=== PATIENT | male | born 1970 | race Caucasian/White ===

== ENCOUNTER → 2016-03-15 12:02 | Outpatient (CLI) | payer BC ==
[~2016-03-15 12:02] MED LIST: ASPIRIN EC81 M1 PO; CATAPRES0.1 MG PO; COREG12.5 MG PO; LISINOPRIL-HCTZ1 TA2 PO; NORMODYNE / TR200 MG PO; NORVASC5 MG PO; PLAVIX75 MG PO
[2016-06-08 16:15] VITALS: BMI 18.0
== END | disposition home or self-care (01) ==
LOC: D.CT 12:02
DX: I65.23 Occlusion and stenosis of bilateral carotid arteries (principal); I10 Essential (primary) hypertension

== ENCOUNTER 2016-03-23 05:40 | Inpatient (IN) | payer MEDICAID ==
[2016-03-22 12:26] LABS: HEMATOCRIT 45.4 % (42.0-54.0); HEMOGLOBIN 15.6 g/dL (13.5-17.5); MCH 29.7 pg (26.0-34.0); MCHC 34.4 g/dL (31.0-37.0); MCV 86.3 fL (80.0-100.0); MEAN PLATELET VOLUME 8.7 fL (7.4-10.4); RBC 5.26 10x6/uL (4.20-6.10); RDW 12.1 % (11.5-14.5); WBC 7.4 10x3/uL (4.8-10.8)
[2016-03-22 12:34] LABS: APTT 27.2 SECONDS (22.8-39.4); INR 0.93 (0.85-1.17); PROTIME 12.3 SECONDS (11.6-15.0)
[2016-03-22 12:39] LABS: ALBUMIN 3.8 g/dL (3.4-5.0); ALKALINE PHOSPHATASE 100 U/L (46-116); ALT (SGPT) 33 U/L (10-68); CALC OSMOLALITY 276 mosm/kg (275-300); CHLORIDE - SERUM 99 mmol/L (98-107); CREATININE - SERUM 0.9 mg/dL (0.6-1.3); GLUCOSE 95 mg/dL (74-106); POTASSIUM - SERUM 4.5 mmol/L (3.5-5.1); PROTEIN - SERUM 7.5 g/dL (6.4-8.2); SODIUM 138 mmol/L (136-145); UREA NITROGEN 15 mg/dL (7-18); eGFR NON AFRICAN AMERICAN > 90 mL/min (90-120)
[2016-03-22 13:07] LABS: APPEARANCE CLEAR (CLEAR); BACTERIA FEW /hpf (NONE SEEN); BILIRUBIN NEGATIVE (NEGATIVE); COLOR YELLOW (YELLOW); EPITHELIAL CELLS OCC /hpf (0-5); GLUCOSE NEGATIVE (NEGATIVE); KETONE NEGATIVE (NEGATIVE); LEUKOCYTE ESTERASE NEGATIVE (NEGATIVE); NITRITE NEGATIVE (NEGATIVE); PROTEIN NEGATIVE (NEGATIVE); SPECIFIC GRAVITY 1.015 (1.005-1.020); UROBILINOGEN NORMAL (NORMAL); WHITE CELLS - URINE RARE /hpf (0-5)
[~2016-03-23] VITALS: Ht 170.2 cm; Wt 52.5 kg
[2016-03-23] VITALS (53 sets, daily range): BP systolic 111–159; BP diastolic 56–99; Ht 170.2 cm; Wt 52.5 kg
[~2016-03-23 05:40] MED LIST changes: -CATAPRES0.1 MG PO; -COREG12.5 MG PO; -NORMODYNE / TR200 MG PO
--- NOTE | 2016-03-23 11:31 | NUR ---
RECIEVED TO ROOM 2303 VIA BED. PLASMALYTE AT 100 CC/HR. CLEVIPREX AT 30 MG/HR. DR. JOHNSON NOTIFIED OF BP. ORDER FOR NIPRIDE RECIEVED. MEDICATION STARTED. CALLED FOR CXR.
--- NOTE | 2016-03-23 12:05 | NUR ---
ICE PACK APPLIED TO LEFT NECK AT 1130. CLEVIPREX INFUSION RESTARTED PER ORDER VERIFIED WITH DR. JOHNSON.
--- NOTE | 2016-03-23 14:00 | NUR ---
MONTERROSOGUNNER REAGAN DC'D PER ORDER. URINAL PROVIDED.
--- NOTE | 2016-03-23 17:41 | NUR ---
PT UPSET THAT HE CAN'T GET OUT OF BED. INFORMED THAT HIS BLOOD PRESSURE IS TOO LABILE AND HE IS ON IV DRIPS TO KEEP HIS BLOOD PRESSURE DOWN. VERBALIZES UNDERSTANDING.
--- NOTE | 2016-03-23 19:11 | NUR ---
DR. JOHNSON UPDATED ON CURRENT VITAL SIGNS AND IV DRIP RATES. NEW ORDERS RECIEVED.
--- NOTE | 2016-03-23 19:30 | NUR ---
1930- REPORT RECVD. CARE ASSUMED. INITIAL ASSMNT COMPLETED. SEE FLOWSHEET FOR ALL FINDINGS. AWAKE AND ALERT. RESTLESS/AGITATED. ANXIOUS. ENCOURAGED TO REST. OVERLY CONCERNED WITH VOIDING. TEACHING R/T URINAL USE. RESP SHALLOW. LUNGS CTA. SPO2 97% ON O2 AT [address] ON THE MONITOR. AFEBRILE. PULSES PALP. RIGHT RADIAL A-LINE ZEROED AND BALANCED. GOOD WAVE FORM SEEN. CLEVIPREX AND NIPRIDE GTT TITRATION IN PROGRESS FOR HYPERTENSION. TEDS/SCDS IN USE. ABD SOFT, BSA X4. BLADDER NON PALP. INDEPENDENT WITH REPOSITIONING. BED ALARM ON. C/L IN REACH. CONT CURRENT POC.
--- NOTE | 2016-03-23 21:30 | NUR ---
FAMILY AT BEDSIDE ATTEMPTING TO CALM AND REASSURE PT. TEACHING R/T MEDS AND ACTIVITY LIMITATIONS. VSS. REMAINS HYPERTENSIVE WITH GTT TITRATION IN PROGRESS.
--- NOTE | 2016-03-23 23:30 | NUR ---
REASSESSMENT COMPLETED. SEE FLOWSHEET FOR ALL FINDINGS. AWAKE AND ALERT. RESTLESS/AGITATED. ANXIOUS. ENCOURAGED TO REST. RESP SHALLOW. LUNGS WITH SCANT WHEEZES UPPER LEFT LOBE. DIM IN BASES. SPO2 97% ON O2 AT [address] ON THE MONITOR. AFEBRILE. PULSES PALP. RIGHT RADIAL A-LINE INTACT WITH GOOD WAVE FORM SEEN. CLEVIPREX AND NIPRIDE GTT TITRATION IN PROGRESS FOR HYPERTENSION. TEDS/SCDS IN USE. ABD SOFT, BSA X4. BLADDER NON PALP. INDEPENDENT WITH REPOSITIONING. BED ALARM ON. C/L IN REACH. CONT CURRENT POC.
[2016-03-24] VITALS (92 sets, daily range): BP systolic 102–148; BP diastolic 42–92
--- NOTE | 2016-03-24 01:30 | NUR ---
RESTLESS...VOIDING FREQ. ANXIOUS...SYS B/P LABILE. CLEVIPREX AND NIPRIDE GTT TITRATION IN PROGRESS. SR-ST ON THE MONITOR. PRN TRAMADOL EFFECTIVE WITH PAIN CONTROL. HOB UP. C/L IN REACH. CONT CURRENT POC.
--- NOTE | 2016-03-24 05:28 | NUR ---
BATH GIVEN. LINENS CHANGED. CONT VOID FREQUENTLY. LESS ANXIOUS. RESTLESS IN BED. REMAINS ON CLEVIPREX AND NIPRIDE GTT TITRATION FOR HYPERTENSION. ST ON THE MONITOR. POSITIONED FOR COMFORT. HOB UP. C/L IN REACH. CONT CURRENT POC.
--- NOTE | 2016-03-24 10:55 | CN ---
PATIENT NAME:AGUSTIN GOMES MEDICAL RECORD: [id number] : 74 LOCATION:[id number] ADMIT DATE: 03/23/16 ACCOUNT: [id number] CONSULTING PHYSICIAN: GERBER PICKERING MD REFERRING PHYSICIAN: MATEO JOHNSON MD DATE OF CONSULTATION: 03/23/2016 Medical Consultation This consult is requested by Dr. Johnson for medical management. HISTORY OF PRESENT ILLNESS: A 45-year-old white male who was followed by Jeri King APN in family medicine clinic, was found to have a bruit. Further workup showed severe carotid stenosis, worse on the left, but also on the right as well. He was referred to Dr. Johnson and the patient is admitted into the hospital today for surgical repair. This has already taken place and he is postoperative and awake and alert right now. PAST MEDICAL HISTORY: He has a history of hypertension. PAST SURGICAL HISTORY: He has some sort of back surgery before he was 4 years old. DRUG ALLERGIES: None known. CURRENT MEDICATIONS: Aspirin 81 mg 2 a day, Norvasc 5 mg a day, lisinopril/HCTZ 10/12.5 mg once a day. HABITS: He smokes about a pack of cigarettes a day. Denies any alcohol, but he is a former drinker. Denies any drug use, but he is a former methamphetamine user. SOCIAL HISTORY: He is single and lives alone. He works in [employer]. FAMILY HISTORY: Father is alive and does not have a heart trouble. Mother of lung problems of some sort. PHYSICAL EXAMINATION: VITAL SIGNS: Blood pressure is 123/64, pulse 105. GENERAL: He is awake. He does not appear in distress. HEENT: Grossly within normal limits. NECK: With dressing in place. HEART: Tachycardia. LUNGS: Fairly clear. ABDOMEN: Soft. EXTREMITIES: No edema. ASSESSMENT: 1. Hypertension. 2. Carotid occlusive disease status post left carotid endarterectomy by Dr. Johnson. PLAN: We will monitor and adjust blood pressure medicines as needed. Other tests and procedures as warranted. CONSULT REPORT [id number] AGUSTIN GOMES Thank you for the consult. We will continue to follow. TRANSINT:[id number] Voice Confirmation ID: [id number] DOCUMENT ID: [id number] GERBER PICKERING MD at 1055 CC: [id number] DICTATION DATE: 03/23/161915 CLINICAL INTERVIEWER: 03/23/162136 ADM IN [facility] [address] [id number]
--- NOTE | 2016-03-24 11:35 | NUR ---
RIGHT RADIAL A-LINE DC'D PER ORDER. MANUAL PRESSURE APPLIED TIMES 8 MINUTES. CLEAR OCCLUSIVE DRESSING APPLIED. PT INSTRUCTED ON S/SX OF BLEEDING OR HEMATOMA TO REPORT.
--- NOTE | 2016-03-24 12:00 | NUR ---
UP TO CHAIR WITH MINIMAL ASSISTANCE.
--- NOTE | 2016-03-24 12:20 | HP ---
PATIENT: AGUSTIN GOMES MEDICAL RECORD: [id number] ACCOUNT: [id number] LOCATION:[facility]2303 : 72 ADMISSION DATE: 03/23/16 HISTORY AND PHYSICAL EXAMINATION Patient NameAGUSTIN GOMES (45yo, M) ID# [id number]. Date/Time03/20/2016 01:76MMFJK73 1970Service Dept.[facility] ClinicProviderEDJARRED JOHNSON MDInsuranceMed Primary: BC[place]: TRUE BLUE ([place]) Insurance # : [id number] Employer Name : UNKNOWN Prescription: CMX - Member is eligible. Prescription: [email or web address] MEDICA[employer]RATION - Member is eligible. Chief Complaint Followup: Carotid artery stenosis referral from Dr Pritchard for CS Patient's Care Team Primary Care Provider: MARQUIS PRITCHARD MD: [address] [place] [address], , Vitals BP:144/100 sitting R arm 03/20/2016 01:31 pm 160/108 sitting L arm 03/20/2016 01:32 pmBP Cuff Size:adult 03/20/2016 01:31 pm adult 03/20/2016 01:32 pmHR:76,reg 03/20/2016 01:32 pmHt:5 ft 7 in 03/20/2016 01:30 pmWt:110 lbs 03/20/2016 01:30 pmNotes:states he just decided to go to Dr Pritchard (sees Jeri King APN) when he got his insurance, and found bruit, then doppler then CTA. 03/20/2016 01:34 pmBMI:17.2 03/20/2016 01:30 pmAllergies Reviewed Allergies NKDAMedications Reviewed Medications amLODIPine 5 mg zhpdso81/27/16 filledCaremarkclopidogrel 75 mg nftbeu27/09/17 filledCaremarklisinopril 10 mg-hydrochlorothiazide 12.5 mg hzpdny53/05/17 filledCaremarkLongs Adult Low Strength ASA 81 mg tablet,delayed release Take 2 tablet(s) every day by oral route.03/20/16 [facility] CenterProblect Reviewed Problems Carotid artery stenosis - Onset: 03/19/2016, Bilateral Family History Discussed Family History Father- Heart diseaseSocial History Discussed Social History Cardiology Family history of heart disease?: Y Smoking Status: Current every day smoker Smoker (03/14 PPD) High Cholesterol: Y High blood pressure: Y Alcohol intake: None Diet: Regular Tobacco-years of use: 20 Surgical History Reviewed Surgical History back surgery as infant, no complications Past Medical History Discussed Past Medical History HISTORY AND PHYSICAL [id number] AGUSTIN GOMES Blurred Vision: Y Carotid Stenosis: Y Drug Abuse: Y Hypertension: Y Documents for Discussion N/A Screening None recorded. HPI Cerebral Vascular Disease Reported by patient. Associated Symptoms: no headache; no nausea; no vomiting; no tinnitus; no difficulty speaking; no lethargy; no fever; no chills; no palpitations; no syncope; no loss of consciousness ROS Patient reports no fever, no night sweats, no significant weight gain, no significant weig ht loss, and no exercise intolerance. He reports no dry eyes, no irritation, and no vision change. He reports no difficulty hearing and no ear pain. He reports no frequent nosebleeds and no nose/sinus problems. He reports no sore throat, no bleeding gums, no snoring, no dry mouth, no mouth ulcers, no oral abnormalities, and no teeth problems. He reports no jugular vein distension and no swollen glands. He reports no chest pain, no arm pain on exertion, no shortness of breath when walking, no shortness of b r eath when lying down, no palpitations, and no known heart murmur. He reports no cough, no wheezing, no shortness of breath, and no coughing up blood. He reports no abdominal pain, no vomiting, normal appetite, no diarrhea, not vomiting blood, no nausea, a n d no constipation. He reports no incontinence, no difficulty urinating, no hematuria, and no increased frequency. He reports no muscle aches, no muscle weakness, no arthralgias/joint pain, no back pain, and no swelling in the extremities. He reports no ab n ormal mole, no jaundice, and no rashes. He reports no loss of consciousness, no weakness, no numbness, no seizures, no dizziness, and no headaches. He reports no depression, no sleep disturbances, feeling safe in relationship, and no alcohol abuse. He rep orts no fatigue. He reports no swollen glands and no bruising. He reports no runny nose, no sinus pressure, no itching, no hives, and no frequent sneezing. Additionally reports: here for carotid stenosis ROS as noted in the HPI Physical Exam Patient is a 45-year-old male. Constitutional: General Appearance well nourished and developed and healthy-appearing. Level of Distress NAD. Ambulation ambulating normally. Cardiovascular: Apical Impulse not displaced or no thrill. Heart Auscultation normal s1 and s2; no murmurs, rubs, or gallops; and RRR. Arterial Pulses no abdominal aorta bruits, femoral bruits, or popliteal bruits and 2+ bilateral, carotid 2+ bilateral, femoral 2+ bilateral, popliteal 2+ bilateral, and dorsalis pedis 2+ bilateral. Edema no edema or varicosities. Lungs: Repiratory Effort no dyspnea. Percussion no hyperresonance or dullness or flatness. Auscultation no wheezing, rhonchi, or rales / crackles and breathing sounds normal, good air movement, and CTA except as noted. Abdomen: Bowl Sounds normal. Inspection and Palpation no tenderness, guarding, masses, or rebound tenderness and soft and non-distended. Liver non-tender and no hepatomegaly. Spleen non-tender and no splenomegaly. Hernia none palpable. HISTORY AND PHYSICAL [id number] AGUSTIN GOMES Musculoskeletal System: Gait And Stance normal gait and stance. Digits and Nails normal nails and no cyanosis. Neurologic: Cranial Nerves grossly intact. Reflexes DTRs 2+ bilaterally throughout. Sensation grossly intact. Lymph Nodes: Lymph Nodes no cervical LAD, supraclavicular LAD, axillary LAD, or inguinal LAD. Eyes: Lids and Conjunctivae no discharge or pallor and non-injected. Pupils PERRLA. Cornea grossly intact. EOM EOMI. Lens clear. Sclerae non-icteric. Neck: Neck no masses or enlarged lymph nodes and supple, trachea midline, and carotid bruits (right lower High-pitched left). Thyroid no enlargement or nodules and non-tender. Skin: Inspection and Palpation no rash, lesions, ulcers, jaundice, or abnormal nevi. Assessment / Plan the lateral carotid stenosis 1. Carotid artery stenosis - Bilateral I65.29: Occlusion and stenosis of unspecified carotid artery CAROTID STENOSIS: CARE INSTRUCTIONS 2. Bilateral carotid artery stenosis I65.23: Occlusion and stenosis of bilateral carotid arteries Discussion Notes severe bilateral carotid artery stenosis left greater than right He also his area bilaterally common carotid stenosis I have discussed his disease process with him in detail as well as the alternative methods of treatment. We discussed left carotid endarterectomy and the expected b enefits and risk which included bleeding, infection, stroke, and . He understands all of the above and wishes to proceed with left carotid endarterectomy. We'll schedule for left carotid endarterectomy Return to Office to see Ishaan Johnson MD at [facility] on or around 03/23/2016 Ishaan Johnson MD for Surgery at [facility]_SURGERY SCHEDULE on 03/23/2016 at 07:30 AM ISHAAN JOHNSON MD at 1220 CC: [id number] DICTATION DATE: 03/20/16 1330 WAITER/WAITRESS ECONOMY CLASS: DM 03/20/16 1504 ADM [id number] [place] [address]
--- NOTE | 2016-03-24 12:20 | OP ---
PATIENT NAME: AGUSTIN GOMES MEDICAL RECORD: [id number] :74 LOCATION:[facility] D.2303 ADMISSION DATE:03/23/16 SURGEON: MATEO JOHNSON MD DATE OF OPERATION: 03/23/2016 SURGEON: Mateo Johnson MD ANESTHESIA: General, Dr. Kiser. OPERATION PERFORMED: Left carotid endarterectomy with patch angioplasty. PREOPERATIVE DIAGNOSIS: Critical left internal carotid artery stenosis. POSTOPERATIVE DIAGNOSIS: Critical left internal carotid artery stenosis. INDICATION FOR OPERATION: Critical left internal carotid artery stenosis. FINDINGS OF THE OPERATION: Severe left internal carotid artery stenosis. There were no EEG changes with clamping or unclamping of the carotid artery. There was proximal plaque in the common carotid artery as well that may need stenting in the future. ESTIMATED BLOOD LOSS: Less than 100 mL. DESCRIPTION OF PROCEDURE: After informed consent and adequate preoperative medication evaluation, the patient was brought to the operating room, placed on the table in supine position. After induction of general endotracheal anesthesia and application of appropriate monitoring devices, the left neck and chest were prepped and draped in a sterile field, utilizing Betadine scrub, alcohol, and Betadine solution. Betadine-impregnated drape was also used. An oblique incision was made in the skin crease. Dissection carried down the fascia. Hemostasis maintained with electrocautery. Facial vein was identified and divided. Utilizing sharp dissection, the common carotid, internal and external carotid arteries were dissected free of surrounding structures, protecting the neurological structures. The patient was given a calculated dose of heparin, after 3 minutes, clamps were applied. After 2 minutes, no EEG changes. The arteriotomy was made and extended with Sinclair scissors. Artery underwent endarterectomy sharply. Artery underwent extensive debridement and irrigation. Utilizing a vascular patch and running 7-0 Prolene suture, the arteriotomy was closed with a patch angioplasty technique. All maneuvers to remove trapped air were performed. The clamps were removed sequentially. There were no EEG changes. The patient was given a calculated dose of protamine to reverse the heparin. Hemostasis was achieved. The #7 Honorio-Juárez drain was left in the depths of wound and brought through the base of the neck. Neck was again irrigated. Instrument count and sponge count were correct times 2. Neck was closed in layers utilizing 3-0 Vicryl on the platysma, 5-0 subcuticular Monocryl on the skin. Sterile dressings were applied. The patient tolerated the procedure well and was transferred to the ICU in stable condition. TRANSINT:[id number] Voice Confirmation ID: [id number] DOCUMENT ID: [id number] OPERATIVE REPORT [id number] AGUSTIN GOMES EDWARD MD at 1220 CC: [id number] DICTATION DATE: 03/23/16 1103 CREDIT PRODUCTS OFFICER: 03/23/16 1133 [place] [address]
--- NOTE | 2016-03-24 18:20 | NUR ---
REMAINS UP TO CHAIR. DENIES NEEDS OR C/O. CONTINUE TO MONITOR BP.
--- NOTE | 2016-03-24 19:15 | NUR ---
REPORT RECVD. CARE ASSUMED. INITIAL ASSMNT COMPLETED. SEE FLOWSHEET FOR ALL FINDINGS. AWAKE AND ALERT. UP IN CHAIR AT BEDSIDE. RESP SHALLOW. LUNGS WITH SCANT WHEEZES THRU OUT. DIM SPO2 97% ON O2 AT [address] ON THE MONITOR. AFEBRILE. PULSES PALP. TEDS/SCDS IN USE. CLEVIPREX GTT TITRATION IN PROGRESS FOR HYPERTENSION. ABD SOFT, BSA X4. BLADDER NON PALP. INDEPENDENT WITH REPOSITIONING. BED ALARM ON. C/L IN REACH. CONT CURRENT POC.
--- NOTE | 2016-03-24 21:00 | NUR ---
ASSITED TO BED FROM CHAIR AT BEDSIDE. DENIES NEEDS. VSS. CLEVIPREX GTT IN USE. CONT CURRENT POC.
--- NOTE | 2016-03-24 23:30 | NUR ---
REASSESSMENT COMPLETED. SEE FLOWSHEET FOR ALL FINDINGS. RESP SHALLOW. LUNGS WITH SCANT WHEEZES THRU OUT. DIM SPO2 97% ON O2 AT [address] ON THE MONITOR. AFEBRILE. PULSES PALP. TEDS/SCDS IN USE. CLEVIPREX GTT TITRATION IN PROGRESS FOR HYPERTENSION. ABD SOFT, BSA X4. BLADDER NON PALP. INDEPENDENT WITH REPOSITIONING. BED ALARM ON. C/L IN REACH. CONT CURRENT POC. =
[2016-03-25] VITALS (63 sets, daily range): BP systolic 90–156; BP diastolic 8–99
--- NOTE | 2016-03-25 01:15 | NUR ---
RESTING WITH NO DISTRESS. REMAINS ON CLEVIPREX. DENIES NEEDS. CONT CURRENT POC.
--- NOTE | 2016-03-25 03:30 | NUR ---
REASSESSMENT COMPLETED. SEE FLOWSHEET FOR ALL FINDINGS RESP SHALLOW. LUNGS WITH SCANT WHEEZES THRU OUT. DIM SPO2 97% ON O2 AT [address] ON THE MONITOR. AFEBRILE. PULSES PALP. TEDS/SCDS IN USE. CLEVIPREX GTT TITRATION IN PROGRESS FOR HYPERTENSION. ABD SOFT, BSA X4. BLADDER NON PALP. INDEPENDENT WITH REPOSITIONING. BED ALARM ON. C/L IN REACH. CONT CURRENT POC. =
--- NOTE | 2016-03-25 05:00 | NUR ---
NO SIG CHANGES. RESTING WITH NO DISTRESS. CLEVIPREX GTT TITRATION IN PROGRESS. CONT CURRENT POC.
--- NOTE | 2016-03-25 07:15 | NUR ---
UP TO CHAIR FOR BREAKFAST.
--- NOTE | 2016-03-25 12:30 | NUR ---
REESE DRAIN DC'D PER DR. JOHNSON.
--- NOTE | 2016-03-25 13:40 | NUR ---
SPOKE WITH HUNTER IN PHARMACY REQUESTING DOSE OF LABETALOL DUE AT 1230. STATES "IT'LL BE RIGHT UP"
--- NOTE | 2016-03-25 14:20 | NUR ---
LABETALOL NOT IN PYXIS AT THIS TIME.
--- NOTE | 2016-03-25 15:05 | NUR ---
LABETALOL NOW IN PYXIS.
--- NOTE | 2016-03-25 17:00 | NUR ---
REMAINS UP IN CHAIR. NO CURRENT NEEDS.
--- NOTE | 2016-03-25 19:30 | NUR ---
REPORT RECVD. CARE ASSUMED. INITIAL ASSMNT COMPLETED. SEE FLOWSHEET FOR ALL FINDINGS. AWAKE AND ALERT. DENNOES NEEDS/DISCOMFORT. RESP UNLABORED. SPO2 97% ON RA. SR ON THE MONITOR. AFEBRILE. PULSES PALP. TEDS/SCDS IN USE. ABD SOFT, BSA X4. VOIDS TO URINAL. BLADDER NON PALP. INDEPENDENT WITH REPOSITIONING. BED ALARM ON. C/L IN REACH. CONT CURRENT POC.
--- NOTE | 2016-03-25 21:30 | NUR ---
HS NEDS ABD PRN ULTRAM GIVEN PO HS SNACK PROVIDED. PO FLUIDS AT BEDSIDE. INDEPENDENT WITH REPOSITIONING IN BED. HOB UP. C/L IN REACH. CONT CURRENT POC.
--- NOTE | 2016-03-25 23:30 | NUR ---
REASSESSMENT COMPLETED. SEE FLOWSHEET FOR ALL FINDINGS. RESP UNLABORED. SPO2 97% ON RA. SR ON THE MONITOR. AFEBRILE. PULSES PALP. TEDS/SCDS IN USE. ABD SOFT, BSA X4. VOIDS TO URINAL. BLADDER NON PALP. INDEPENDENT WITH REPOSITIONING. BED ALARM ON. C/L IN REACH. CONT CURRENT POC.
[2016-03-26] VITALS (24 sets, daily range): BP systolic 106–166; BP diastolic 56–99
--- NOTE | 2016-03-26 01:30 | NUR ---
RESTING IN BED. NO DISTRESS. VSS. SR ON THE MONITOR. SYS B/P WITHIN PARAMETERS. RESP UNAOLBORED. DENIES NEEDS/DISCOMFORT. HOB UP. C/L IN REACH. CONT CURRENT POC.
--- NOTE | 2016-03-26 05:10 | NUR ---
RESTING WITH NO DISTRESS. VSS. SR ON THE MONITOR. HOB UP. C/L IN REACH. CONT CURRENT POC.
--- NOTE | 2016-03-26 07:30 | NUR ---
REPORT RECIEVED FROM SPLASH LINE OPERATOR NURSE. UPON ASSESSMENT PT LAYING ON SIDE. STATED HE HAD BM. LARGE BM NOTED TO PINK PAD. INCONTINENT CARE PROVIDED. PT STATES HE CAN'T ALWAYS HOLD HIS BM'S. STATED TO PT WHEN HE FELT URGE TO HAVE BM TO PRESS HIS CALL LIGHT FOR ASSISTANCE.
--- NOTE | 2016-03-26 08:00 | NUR ---
ASSISTED TO BSC. BOWEL INCONTINENCE NOTED WHILE TRANSFERING TO BEDSIDE COMMODE. PT PLACED ON BSC. SMALL AMOUNT OF LIQUIDY STOOL NOTED IN COMMODE. WILL CONTINUE TO MONITOR. CALL LIGHT IN REACH.
[2016-03-26] MEDS ORDERED: NORMODYNE / TR200 MG PO (08:05)
--- NOTE | 2016-03-26 08:45 | NUR ---
DR. JOHNSON AWARE OF INCONTINENCE EPISODE. STATED HE WOULD HOLD D/C UNTL FURTHER TODAY TO SEE IF IT OCCURS AGAIN.
--- NOTE | 2016-03-26 10:15 | NUR ---
COMPLETE LINEN CHANGE PROVIDED. ASSISTED TO CHAIR WITH MINIMAL ASSITANCE REQIURED. CALL LIGHT IN REACH. WILL CONTINUE TO ASSESS.
--- NOTE | 2016-03-26 11:05 | NUR ---
ASSISTED TO BSC. SMALL AMOUNT OF LOOSE STOOL NOTED TO CANLOLIS. WILL CONTINUE TO MONITOR.
--- NOTE | 2016-03-26 12:00 | NUR ---
ASSISTED TO BSC. SMALL AMOUNT OF FORMED STOOL NOTED. WILL DOCUMENT IN I&O'S.
--- NOTE | 2016-03-26 12:30 | NUR ---
COUSIN AT BEDSIDE. DENIES NEED AT THIS TIME. WILL CONTINUE TO ASSESS. CALL LIGHT AND PERSONAL BELONGINGS IN REACH.
--- NOTE | 2016-03-26 14:00 | NUR ---
RECEIVED REPORT FROM FABBY EVANS RN. WILL TAKE OVER CARE OF PT. PT SITTING UP IN CHAIR AT THIS TIME WATHCHING TELEVISION. NO S/S OF DISTRESS NOTED. VSS.
--- NOTE | 2016-03-26 19:10 | NUR ---
REC'D TO CARE, SITTING UP IN CHAIR. ALERT AND ORIENTED. VSS. L NECK AND CHEST INCISIONS NOTED. R DLSC, DSG C/D/I, SL'D. CM - SR. VSS. PT DENIES PAIN OR NEEDS. L FA PIV D/C'D INTACT PER PT REQUEST. PT VERBALIZES UNDERSTANDING OF FALL PRECAUTIONS. C/L IN USE.
--- NOTE | 2016-03-26 21:33 | NUR ---
NO VISITORS, REMAINS UP IN CHAIR. ADMIN PO MED PER MD ORDER.
--- NOTE | 2016-03-26 22:31 | NUR ---
REASSESSMENT PER FLOWSHEET. NO ACUTE CHANGES. IN BED. VSS. C/L IN USE.
[2016-03-27] VITALS (70 sets, daily range): BP systolic 104–185; BP diastolic 57–115
--- NOTE | 2016-03-27 00:28 | NUR ---
PT RESTING WITH EYES CLOSED, VSS. URINAL EMPTIED OF 350ML CLEAR, YELLOW URINE. NO BM.
--- NOTE | 2016-03-27 02:56 | NUR ---
REASSESSMENT PER FLOWSHEET, NO ACUTE CHANGES. VSS. PT DENIES NEEDS.
--- NOTE | 2016-03-27 05:42 | NUR ---
PT HAD VERY SMALL, FORMED BM. SPECIMEN TO LAB. EBONY-CARE PER PT, THEN UP IN CHAIR INDEPENDENTLY. GIVEV BREAK FROM LUIS/SCD - SOCKS ON. C/L IN REACH.
--- NOTE | 2016-03-27 07:00 | NUR ---
ASSESSMENT COMPLETE PER FLOWSHEET. NO CO AT TIME.
--- NOTE | 2016-03-27 08:21 | NUR ---
BP 188/109 CLEVIPREX STARTED.
--- NOTE | 2016-03-27 09:34 | NUR ---
Is the patient Alert and Oriented? Yes 0 * How many steps to enter\exit or inside your home? 4/RAIL 0 * PCP DR. ISLAS BUT SEE'S ERIC GAMINO APN 0 * Pharmacy [facility] [address] * Preadmission Environment Home Alone 0 * ADLs Independent 0 * Equipment None 0 * List name and contact numbers for known caregivers / representatives who currently or will assist patient after discharge: FATHER: MULU GOMES [phone] COUSIN: GO [phone] * Community resources currently utilized None 0 * Additional services required to return to the preadmission environment? No 0 * Can the patient safely return to the preadmission environment? Yes 0 * Has this patient been hospitalized within the prior 30 days at any hospital? No 0 PATIENT LIVES AT HOME ALONE. HE STATES HIS FATHER LIVES NEXT DOOR TO HIM AND ASSIST HIM IF NEEDED. HIS COUSIN, GO, WILL BE AVAILABLE TO DRIVE HIM HOME AT DISCHARGE. HIS PCP IS DR. ISLAS BUT HE SEE'S ERIC GAMINO APN. PATIENT USES [facility] [address] FOR HIS MEDICATION NEEDS. PATIENT DENIES USE OF ANY EQUIPMENT AND HAS NEVER HAD HOME HEALTH. PATIENT STATES THERE ARE 4 STEPS WITH A RAIL TO ENTER HIS HOME. NO DISHCARGE NEEDS IDENTIFIED AT THIS TIME.
--- NOTE | 2016-03-27 11:00 | NUR ---
CLEVIPREX RESTARTED AT 4MG/HR. SEE BP.
--- NOTE | 2016-03-27 19:15 | NUR ---
REPORT RECIEVED, SHIFT ASSESSMENT COMPLETE, PT IS ALERT AND ORIENTED, ON RA WITH 97% O2 SAT. LUNGS CLEAR IN ALL LOBES, S1S2, CM-NSR, PATENT RIGHT SC CVL WITH CLEVEPREX INFUSING @ 2.5 MG/HR VIA PUMP, ABODMEN IS FLAT WITH ACTIVE BS, BSC AND URINAL AT BEDSIDE, ALL PPP, NO NEEDS NOTED, CALL LIGHT IN REACH
--- NOTE | 2016-03-27 21:00 | NUR ---
NO VISITORS AT THIS TIME, WILL CON'T TO MONITOR
--- NOTE | 2016-03-27 23:00 | NUR ---
REASSESSMENT COMPLETE, NO CHANGES NOTED, PT RESTING AT THIS TIME, NO NEEDS NOTED, WILL CON'T TO MONITOR
[2016-03-28] VITALS (32 sets, daily range): BP systolic 93–180; BP diastolic 69–117
--- NOTE | 2016-03-28 01:00 | NUR ---
PT RESTING AT THIS TIME, NO NEED NOTED, WILL CON'T TO MONITOR
--- NOTE | 2016-03-28 03:03 | NUR ---
REASSESSMENT COMPLETE, NO CHANGES NOTED, PT RESTING AT THIS TIME, NO NEEDS NOTED, WILL CON'T TO MONITOR
--- NOTE | 2016-03-28 05:00 | NUR ---
NO NEEDS NOTED AT THIS TIME, WILL CON'T TO MONITOR
--- NOTE | 2016-03-28 16:00 | NUR ---
DR JOHNSON CALLED INSTRUCT BP 170/110. NEW ORDERS OBTAINED.
--- NOTE | 2016-03-28 17:00 | NUR ---
DR JOHNSON CALLED TO CHECK ON PT. NEW ORDERS OBTAINED.
--- NOTE | 2016-03-28 19:00 | NUR ---
REPORT RECIEVED, SHIFT ASSESSMENT COMPLETE, PT IS ALERT AND ORIENTED, ON RA WITH 97% O2 SAT. LUNGS CLEAR IN ALL LOBES, S1S2, CM-NSR, PATENT RIGHT SC CVL WITH NITRO INFUSING VIA PUMP, ABDOMEN IS FLAT WITH ACTIVE BS, BSC AND URINAL AT BEDSIDE, ALL PPP, CALL LIGHT IN REACH
--- NOTE | 2016-03-28 21:10 | NUR ---
NO VISITORS AT THIS TIME. VSS. PT SLEEPING COMFORTABLY. WILL CNOTINUE TO MONITOR.
--- NOTE | 2016-03-28 23:00 | NUR ---
REASSESSMENT COMPLETE, NO CHANGES NOTED, PT RESTING AT THIS TIME, VSS, CALL LIGHT IN REACH
[2016-03-29] VITALS: BP 139/91
--- NOTE | 2016-03-29 01:00 | NUR ---
NO NEEDS NOTED AT THIS TIME, WILL CON'T TO MONITOR
[2016-03-29 02:00] VITALS: BP 132/98
--- NOTE | 2016-03-29 03:05 | NUR ---
REASSESSMENT COMPLETE, NO CHANGES NOTED, PT RESTING AT THIS TIME,
[2016-03-29 04:00] VITALS: BP 117/71
--- NOTE | 2016-03-29 05:04 | NUR ---
NO NEEDS NOTED, WILL CON'T TO MONITOR
--- NOTE | 2016-03-29 06:11 | NUR ---
REPORT RECEIVED FROM MAKENNA KRUSE. ARRIVED TO FLOOR VIA WHEELCHAIR. ORIENTED TO UNIT AND PLACED ON TELEMETRY. CALL LIGHT IN REACH. WILL CONTINUE TO MONITOR.
--- NOTE | 2016-03-29 07:10 | NUR ---
ASSESSMENT COMPLETED. PT HAS A RIGHT DL SUB CLAVIAN. STERI STRIPS TO LEFT SIDE OF NECK. TELEMERTTY SHOWS SR. DENIES ANY NEEDS. CALL LIGHT IN REACH WITH SR UP
[2016-03-29 08:07] VITALS: BP 144/92
[2016-03-29 08:53] LABS: HEMATOCRIT 37.7 % (42.0-54.0); HEMOGLOBIN 13.1 g/dL (13.5-17.5); MCH 29.2 pg (26.0-34.0); MCHC 34.7 g/dL (31.0-37.0); MEAN PLATELET VOLUME 8.6 fL (7.4-10.4); RBC 4.49 10x6/uL (4.20-6.10); RDW 12.1 % (11.5-14.5)
[2016-03-29] MEDS ORDERED: ASPIRIN EC81 M1 PO (09:24)
[2016-03-29] MEDS ORDERED: PLAVIX75 MG PO (09:24)
[2016-03-29] MEDS ORDERED: COREG12.5 MG PO (09:24)
[2016-03-29] MEDS ORDERED: CATAPRES0.1 MG PO (09:24)
[2016-03-29 09:46] LABS: CALC OSMOLALITY 286 mosm/kg (275-300); CARBON DIOXIDE 25.8 mmol/L (21.0-32.0); CHLORIDE - SERUM 110 mmol/L (98-107); CREATININE - SERUM 0.6 mg/dL (0.6-1.3); GLUCOSE 76 mg/dL (74-106); SODIUM 144 mmol/L (136-145); UREA NITROGEN 15 mg/dL (7-18); eGFR NON AFRICAN AMERICAN > 90 mL/min (90-120)
[2016-03-29 09:47] LABS: CALCIUM 6.9 mg/dL (8.5-10.1)
--- NOTE | 2016-03-29 11:00 | NUR ---
SUBCLAVIAN PULLED AND PRESSURE HELD. INSTRUCTIONS GIVEN TO PT. TO PRIVATE CAR PER WHEELCHAIR
--- NOTE | 2016-03-29 11:01 | NUR ---
Patient Name: AGUSTIN GOMES Encounter No: [id number] : 1970 Primary Insurance: [place] PRIVATE OPTIONS [place] Anticipated DC Date: 03-29-2016 Planned Disposition: Home DCP follow-up note: CM RECEIVED DISCHARGE ORDER THAT INDICATES PT NEEDS BLOOD PRESSURE CUFF AT HOME. CM CALLED PT'S FURNITURE STAINER, MARVIN LUNDBERG, , WHO REPORTED THAT INSURANCE WILL NOT COVER MONITOR, SUGGESTED PT TRY [employer] STORES FOR LOW COST OPTION; MARVIN WILL FOLLOW UP WITH PT POST DISCHARGE. CM MET WITH PT IN ROOM TO DISCUSS DISCHARGE NEEDS AND PLANNING. CM DISCUSSED AVAILABILITY OF HOME HEALTH, REHAB SERVICES AND MEDICAL EQUIPMENT. PT DENIES DISCHARGE NEEDS. PT WILL SHOP FOR LOW COST BLOOD PRESSURE MONITOR. 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 PT REPORTS A FRIEND TO TRANSPORT HOME TODAY. Rodolfo Mcintyre, CASE MANAGEMENT
== END 2016-03-29 11:43 | disposition home or self-care (01) | DRG 39 ==
LOC: D.SDCHOLD 05:40 → D.ICU 05:40 → D.SDCHOLD 07:30 → D.ICU 10:31 → D.M2 03-29 06:03
PROVIDERS: ADMIT Internal Medicine Cardiovascular Disease
PROC: 03UL0JZ Supplement Left Internal Carotid Artery with Synthetic Substitute, Open Approach (ICD-10-PCS; 2016-03-23)
PROC: 03CL0ZZ Extirpation of Matter from Left Internal Carotid Artery, Open Approach (ICD-10-PCS; principal; 2016-03-23 07:30)
DX: I65.23 Occlusion and stenosis of bilateral carotid arteries (principal); I10 Essential (primary) hypertension; E78.00 Pure hypercholesterolemia, unspecified; R19.7 Diarrhea, unspecified

== ENCOUNTER → 2016-04-20 10:43 | Outpatient (CLI) | payer MEDICAID ==
[2016-03-23 12:24] VITALS: BMI 18.1
[~2016-04-20 10:43] MED LIST changes: +CATAPRES0.1 MG PO; +COREG12.5 MG PO; +NORMODYNE / TR200 MG PO
== END | disposition home or self-care (01) ==
LOC: D.CT 10:43
DX: I12.9 Hypertensive chronic kidney disease with stage 1 through stage 4 chronic kidney disease, or unspecified chronic kidney disease (principal)

== ENCOUNTER 2016-05-01 06:10 | Day surgery (SDC) | payer MEDICAID ==
--- NOTE | 2016-04-28 11:55 | HP ---
PATIENT: AGUSTIN GOMES MEDICAL RECORD: [id number] ACCOUNT: [id number] LOCATION:[facility] : 74 ADMISSION DATE: 05/01/16 HISTORY AND PHYSICAL EXAMINATION AGUSTIN Dorado (45yo, M) ID# [id number]. Date/Time04/26/2016 01:[id number] 1970Servic Dept.[facility] ClinicProviderEDJARRED JOHNSON MDInsuranceMed Primary: [place] Insurance # : [id number] Employer Name : UNKNOWN Prescription: CMX - Member is eligible. Prescription: [facility]ICA[facility] - Member is eligible. Chief Complaint Followup: Carotid artery stenosis s/p LCEA 03/23/16 Patient's Care Team Primary Care Provider: MARQUIS SUAREZ MD: [address] [place] [id number], , Vitals BP:150/80 sitting R arm 04/26/2016 01:56 pmHR:88R/R 04/26/2016 01:56 pmHt:5 ft 7 in 04/26/2016 01:46 pmWt:115 lbs 04/26/2016 01:56 pmBMI:18 04/26/2016 01:56 pmAllergies Reviewed Allergies NKDAMedications Reviewed Medications amLODIPine 5 mg yafuir97/27/16 filledCaremarkaspirin 81 mg tablet,delayed release TK 1 T PO D003/29/16 filledsurescriptscarvedilol 12.5 mg /19/17 filledCaremarkcloNIDine HCl 0.1 mg ivfcdd66/19/17 filledCaremarkclopidogrel 75 mg tablet TK 1 T PO D004/20/16 filledsurescriptslisinopril 10 mg-hydrochlorothiazide 12.5 mg njecpi81/05/17 filledCaremarkLongs Adult Low Strength ASA 81 mg tablet,delayed release Take 2 tablet(s) every day by oral route.03/20/16 Neida Huang Some medications listed in Documents: #[id number], #[id number] could not be added to this patient's chart. Please review these documents and add these medications to the patient's chart manually as needed. Vaccines Reviewed Vaccines Some vaccines listed in Documents: #[id number], #[id number] could not be added to this patient's chart. Please review these documents and add these vaccines to the patient's chart manually as needed. Problems Reviewed Problems Carotid artery stenosis - Onset: 03/19/2016, Bilateral Family History Discussed Family History Father- Heart diseaseSocial History Discussed Social History Cardiology Family history of heart disease?: Y Smoking Status: Current every day smoker Smoker (03/14 PPD) High Cholesterol: Y HISTORY AND PHYSICAL [id number] AGUSTIN GOMES High blood pressure: Y Alcohol intake: None Diet: Regular Tobacco-years of use: 20 Surgical History Reviewed Surgical History 1/ back surgery as , no complications Past Medical History Discussed Past Medical History Blurred Vision: Y Carotid Stenosis: Y Drug Abuse: Y Hypertension: Y Documents for Discussion N/A Screening None recorded. HPI Cerebral Vascular Disease Reported by patient. Associated Symptoms: no headache; no nausea; no vomiting; no tinnitus; no difficulty speaking; no lethargy; no fever; no chills; no palpitations; no syncope; no loss of consciousness bilateral iliac artery disease with claudication ROS Patient reports muscle aches and muscle weakness but reports no arthralgias/joint pain, no back pain, a nd no swelling in the extremities. He reports no fever, no night sweats, no significant weight gain, no significant weight loss, and no exercise intolerance. He reports no dry eyes, no irritation, and no vision change. He reports no difficulty hearing and no ear pain. He reports no frequent nosebleeds and no nose/sinus problems. He reports no sore throat, no bleeding gums, no snoring, no dry mouth, no mouth ulcers, no oral abnormalities, and no teeth problems. He reports no jugular vein distension and no s w ollen glands. He reports no chest pain, no arm pain on exertion, no shortness of breath when walking, no shortness of breath when lying down, no palpitations, and no known heart murmur. He reports no cough, no wheezing, no shortness of breath, and no coug h ing up blood. He reports no abdominal pain, no vomiting, normal appetite, no diarrhea, not vomiting blood, no nausea, and no constipation. He reports no incontinence, no difficulty urinating, no hematuria, and no increased frequency. He reports no abnorma l mole, no jaundice, and no rashes. He reports no loss of consciousness, no weakness, no numbness, no seizures, no dizziness, and no headaches. He reports no depression, no sleep disturbances, feeling safe in relationship, and no alcohol abuse. He reports no fatigue. He reports no swollen glands and no bruising. He reports no runny nose, no sinus pressure, no itching, no hives, and no frequent sneezing. Additionally reports: here for carotid stenosis ROS as noted in the HPI Physical Exam Patient is a 45-year-old male. Constitutional: General Appearance well nourished and developed and healthy-appearing. Level of Distress NAD. Ambulation ambulating normally. Cardiovascular: Apical Impulse not displaced or no thrill. Heart Auscultation normal s1 and s2; no m urmurs, rubs, or gallops; and RRR. Arterial Pulses no abdominal HISTORY AND PHYSICAL [id number] AGUSTIN GOMES aorta bruits, femoral bruits, or popliteal bruits and 2+ bilateral, carotid 2+ bilateral, femoral 2+ bilateral, popliteal 2+ bilateral, dorsalis pedis 2+ bilateral, and femoral diminished (bilaterally). Edema no edema or varicosities. Lungs: Repiratory Effort no dyspnea. Percussion no hyperresonance or dullness or flatness. Auscultation no wheezing, rhonchi, or rales / crackles and breathing sounds normal, good air movement, and CTA except as noted. Abdomen: Bowl Sounds normal. Inspection and Palpation no tenderness, guarding, masses, or rebound tenderness and soft and non-distended. Liver non-tender and no hepatomegaly. Spleen non-tender and no splenomegaly. Hernia none palpable. Musculoskeletal System: Gait And Stance normal gait and stance. Digits and Nails normal nails and no cyanosis. Neurologic: Cranial Nerves grossly intact. Reflexes DTRs 2+ bilaterally throughout. Sensation grossly intact. Lymph Nodes: Lymph Nodes no cervical LAD, supraclavicular LAD, axillary LAD, or inguinal LAD. Eyes: Lids and Conjunctivae no discharge or pallor and non-injected. Pupils PERRLA. Cornea grossly intact. EOM EOMI. Lens clear. Sclerae non-icteric. Neck: Neck no masses or enlarged lymph nodes and supple, trachea midline, and carotid bruits (right lower High-pitched left); left neck healing well. Thyroid no enlargement or nodules and non-tender. Skin: Inspection and Palpation no rash, lesions, ulcers, jaundice, or abnormal nevi. Assessment / Plan bilateral iliac artery stenosis left critical common iliac significant greater than 70% stenosis of the right external iliac artery Normal renal arteries 1. Intermittent claudication due to atherosclerosis of [place] artery of limb I70.213: Atherosclerosis of [place] arteries of extremities with intermittent claudication, bilateral legs 2. Carotid artery stenosis - Bilateral I65.29: Occlusion and stenosis of unspecified carotid artery CAROTID STENOSIS: CARE INSTRUCTIONS Discussion Notes critical left common iliac artery stenosis High-grade right external iliac artery stenosis Claudication of the lower extremities when walking left greater than the right I have discussed his disease process with him in detail as well as the alternative methods of treatment. We discussed arteriogram and bilateral intervention the expected benefits and risk which included bleeding, infection, stroke, loss of limb, and . He understands all of the above and wishes to proceed with planned procedure. Return to Office Ishaan Johnson MD for Surgery at [facility]SURGERY SCHEDULE on 05/01/2016 at 08:30 AM HISTORY AND PHYSICAL [id number] AGUSTIN GOMES to see Ishaan Johnson MD at [facility] on or around 05/03/2016 ISHAAN JOHNSON MD at 1155 CC: [id number] DICTATION DATE: 04/26/16 1330 LEASING AGENT: DM 04/27/16 [address] [facility] [address] [place] [address]
[2016-05-01] VITALS (31 sets, daily range): BP systolic 125–201; BP diastolic 58–107; Ht 170.2 cm; Wt 50.1 kg
[~2016-05-01] VITALS: Ht 170.2 cm; Wt 50.1 kg
[2016-05-01 07:17] LABS: HEMATOCRIT 40.8 % (42.0-54.0); MCH 29.9 pg (26.0-34.0); MCHC 34.3 g/dL (31.0-37.0); MEAN PLATELET VOLUME 8.6 fL (7.4-10.4); RBC 4.69 10x6/uL (4.20-6.10); RDW 12.9 % (11.5-14.5); WBC 7.8 10x3/uL (4.8-10.8)
[2016-05-01 07:30] LABS: ALBUMIN 3.3 g/dL (3.4-5.0); ALKALINE PHOSPHATASE 88 U/L (46-116); ALT (SGPT) 21 U/L (10-68); BILIRUBIN - TOTAL 0.27 mg/dL (0.2-1.3); CALC OSMOLALITY 280 mosm/kg (275-300); CALCIUM 8.7 mg/dL (8.5-10.1); CARBON DIOXIDE 26.2 mmol/L (21.0-32.0); CHLORIDE - SERUM 105 mmol/L (98-107); GLUCOSE 92 mg/dL (74-106); PROTEIN - SERUM 6.7 g/dL (6.4-8.2); SODIUM 140 mmol/L (136-145); UREA NITROGEN 18 mg/dL (7-18); eGFR NON AFRICAN AMERICAN 87 mL/min (90-120)
[2016-05-01 07:41] LABS: APTT 27.3 SECONDS (22.8-39.4); INR 0.99 (0.85-1.17)
--- NOTE | 2016-05-01 08:24 | NUR ---
0820-REPORTED CRITICAL LOW CALCIUM ABG LEVEL TO SHEILA ARELLANO RN.
[2016-05-01 09:01] LABS: APPEARANCE CLEAR (CLEAR); COLOR YELLOW (YELLOW); SPECIFIC GRAVITY 1.015 (1.005-1.020)
[2016-05-01 09:02] LABS: BILIRUBIN NEGATIVE (NEGATIVE); GLUCOSE NEGATIVE (NEGATIVE); KETONE NEGATIVE (NEGATIVE); NITRITE NEGATIVE (NEGATIVE); PROTEIN NEGATIVE (NEGATIVE); UROBILINOGEN NORMAL (NORMAL)
[2016-05-01 09:03] LABS: LEUKOCYTE ESTERASE NEGATIVE (NEGATIVE)
[2016-05-01 09:05] LABS: BACTERIA NONE SEEN /hpf (NONE SEEN); EPITHELIAL CELLS NSEEN /hpf (0-5); RED CELLS - URINE 0-5 /hpf (0-5); WHITE CELLS - URINE NSEEN /hpf (0-5)
--- NOTE | 2016-05-01 12:25 | NUR ---
REC'D PT VIA BED. PT RESTING WITH EYES CLOSED. BP ELEVATED, CLEVIPREX TO BE STARTED. PT ON 15L SIMPLE MAST. RIGHT WRIST PIV WITH BICARB INFUSING, NO REDNESS OR SIGNS OF INFILTRATION. LEFT WRIST PIV WITH NS INFUSING, NO SIGNS OF REDNESS OR INFILTRATION. BILAT GROIN INCISION, DRESSING CDI. BILAT PEDAL PULSES AND RADIAL PULSES PALPABLE. NO C/O PAIN. SHIFT ASSESSMENT COMPLETED, SEE FLOW SHEET. ROOM FREE OF CLUTTER, CALL LIGHT IN REACH, WILL CONTINUE TO MONITOR PT.
--- NOTE | 2016-05-01 12:30 | NUR ---
CHANGED PT TO 4LNC, O2 SAT 100%, WILL CONTINUE TO MONITOR PT.
--- NOTE | 2016-05-01 13:07 | NUR ---
DR. JOHNSON AT THE BEDSIDE SPEAKING WITH PT FAMILY. VSS, WILL CONINTUE TO MONITOR PT.
--- NOTE | 2016-05-01 14:00 | NUR ---
LEFT WRIST PIV "PULLED OUT" PER PT, TIP INTACT. BANDAID APPLIED. 20G PIV TO RIGHT AC. DRESSING APPLIED. COMPLETE LINEN CHANGE. ROOM FREE OF CLUTTER, CALL LIGHT IN REACH, WILL CONTINUE TO MONITOR PT.
--- NOTE | 2016-05-01 15:00 | NUR ---
PT RESTING WITH EYES CLOSED, NO C/O PAIN, INFORMED PTS FAMILY THAT PT WAS RESTING, "I WILL BE BACK AT THE 6 O'CLOCK". NO FURTHER QUESITONS OR CONCERNS.
--- NOTE | 2016-05-01 17:58 | NUR ---
BILAT GROIN DRESSINGS CHANGED, CLEANED WITH BETADINE SWABS, 4X4'S APPLIED, TEGADERMS APPLIED TO BILAT GROIN INCISIONAL SITES. WILL CONTINUE TO MONITOR PT.
--- NOTE | 2016-05-01 18:15 | NUR ---
PT FAMILY AT THE BEDSIDE, ALL QUESTIONS ANSWERED, VSS. WILL CONTINUE TO MONITOR PT.
--- NOTE | 2016-05-01 19:15 | NUR ---
REPORT RECEIVED AND CARE ASSUMED. PT UP IN CHAIR WATCHING TV. SHIFT ASSESSMENT COMPLETED. SEE FLOWSHEET. PT AA0X4 SPEECH CLEAR. DENIES NEEDS AND PAIN. RESP REG AND NONLABORED ON RA. LUNGS CTA, ABD SOFT BS ACTIVE BRUISES NOTED ON LOWER MID ABDOMEN AND ON INNER THIGHS. DRESSINGS TO BILAT GROINS. BOTH DATED AND LABELED 05/01/16 1800. LEFT CDI. RIGHT WITH SOME BLOODY DRAINAGE NOTED. NO ACTIVE BLEEDING. PT INSTRUCTED TO REMAIN IN RECLINED POSITION NOT BENDING LEG WILL MONITOR. RADIAL AND PEDAL PULSES PALPABLE RIGHT PEDAL PULSE STRONGER THAN LEFT ALTHOUGH LEFT EASILY PALPABLE. FEET WARM TO TOUCH. RIGHT WRIST PIV WITH IVF PER FLOWSHEET. TITRATING PER ORDER. PT BEING MONITORED PER STANDARD CVICU PROTOCOL WITH ALL ALARMS VERIFIED AND SET. PT IS VISIBLE FROM NURSES STATION. VERBALIZES COMPREHENSION OF INSTRUCTIONS.
--- NOTE | 2016-05-01 19:45 | NUR ---
FAMILY AT BEDSIDE. PT INTERACTING APPROPRIATE DENIES PAIN AND NEEDS. DRESSING TO RIGHT GROIN REMAINS UNCHANGED. 2X2 GAUZE PLACED BELOW THE DRESSING TO ASSESS FOR ANY ACTIVE DRAINAGE. PT REMAINS INCLINED AND HAS NOT GOTTEN UP OR BENT LEG. PULSES UNCHANGED. TITRATING CLEVIPREX WITH ALL CHANGES DOCUMENTED ON IV FLOWSHEET.
--- NOTE | 2016-05-01 20:30 | NUR ---
DRESSING TO RIGHT GROIN CHANGED WITH STERILE TECHNIQUE. SCANT SUPERFICIAL OZZING AT INCISON SITE. NO HEMATOMA.
--- NOTE | 2016-05-01 21:45 | NUR ---
DRESSING TO RIGHT AND LEFT GROIN REMAIN CDI. PT RESTING IN CHAIR CALL LIGHT IN REACH. CONTINUE TO TITRATE CLEVIPREX TOLERATED
--- NOTE | 2016-05-01 22:38 | NUR ---
RT AT BEDSIDE PT DOING IS WITH EXCELLENT DEMONSTRATION DOING 3500ML'S
--- NOTE | 2016-05-01 23:00 | NUR ---
SHIFT REASSESSMENT COMPLETED. NO SIGNIFICANT CHANGES. PT REMAINS ON RA. RESP REG AND NONLABORED. IVF PER FLOWSHEET. TRITRATING CLEVIPREX, DECREASING TO 6MG/HR AT THIS TIME. DRESSINGS TO GROIN BILAT ARE CDI WITH NO DRAINAGE OR BLEEDING. NO HEMATOMA NOTED. PEDAL PULSES PALPABLE ALTHOUGH LEFT REMAINS WEAKER THAN RIGHT BOTH ARE WARM. PT INDEPENDENT WITH ADLS AND REQUESTING ASSISTANCE WHEN REQUIRED.
[2016-05-02] VITALS (32 sets, daily range): BP systolic 114–169; BP diastolic 59–89
--- NOTE | 2016-05-02 00:30 | NUR ---
B/P >160 INCREASING CLEVIPREX FROM 4MG/HR TO 6MG/HR. ALL CHANGES DOCUMENTED ON IV FLOWSHEET. PT IS SLEEPING RESP REG AND NONLABORED. DRESSINGS TO BILAT GROINS REMAIN CDI. PT EASILY AWAKEN DENIES PAIN. VOIDING FREELY
--- NOTE | 2016-05-02 03:00 | NUR ---
SHIFT REASSESSMENT COMPLETED, SEE FLOWSHEET. NO SIGNIFICANT CHANGES. CONTINUE TO MONITOR PER STANDARD CVICU PROTOCOL. CONTINUE TO TITRATE CLEVIPREX TOLERATED. DRESSINGS TO GROIN BIALTERALLY REMAIN CDI WITH NO DRAINAGE OR BLEEDING SEEN. NO HEMATOMA FELT. PULSES REMAIN UNCHANGED. PT DENIES PAIN. GETTING UP TO BATHROOM WITH ASSIST ONLY WITH LINES AND CORDS TO PREVENT ENTANGLEMENT. GAIT STEADY.
--- NOTE | 2016-05-02 05:00 | NUR ---
CONTINUE TO SLOWLY TITRATE CLEVIPREX. NOW REDUCING TO 1MG/HR. PT HAS GOTTEN UP SEVERAL TIMES TO VOID. STATES HE GETS UP ALL NIGHT LONG EVERY NIGHT INDICATING THIS IS A CHRONIC ONGOING ISSUE FOR HIM. GAIT IS STEADY AND VOIDING BETWEEN 75-150CC CLEAR YELLOW NON-MALODOROUS URINE. DRESSINGS REMAIN CDI TO BILAT GROIN NO HEMATOMAS. PT DENIES PAIN.
--- NOTE | 2016-05-02 05:30 | NUR ---
CUSTOMER SUCCESS SPECIALIST AT BEDSIDE FOR AM LAB
[2016-05-02 05:56] LABS: HEMATOCRIT 41.8 % (42.0-54.0); HEMOGLOBIN 14.3 g/dL (13.5-17.5); MCH 29.5 pg (26.0-34.0); MCHC 34.2 g/dL (31.0-37.0); MCV 86.4 fL (80.0-100.0); MEAN PLATELET VOLUME 8.6 fL (7.4-10.4); RBC 4.84 10x6/uL (4.20-6.10)
[2016-05-02 06:13] LABS: WBC 14.5 10x3/uL (4.8-10.8)
[2016-05-02 06:20] LABS: ALBUMIN 3.6 g/dL (3.4-5.0); ALKALINE PHOSPHATASE 101 U/L (46-116); ALT (SGPT) 22 U/L (10-68); BILIRUBIN - TOTAL 0.36 mg/dL (0.2-1.3); CALCIUM 8.8 mg/dL (8.5-10.1); CARBON DIOXIDE 27.4 mmol/L (21.0-32.0); CHLORIDE - SERUM 102 mmol/L (98-107); CREATININE - SERUM 0.8 mg/dL (0.6-1.3); GLUCOSE 127 mg/dL (74-106); POTASSIUM - SERUM 3.6 mmol/L (3.5-5.1); PROTEIN - SERUM 7.4 g/dL (6.4-8.2); SODIUM 139 mmol/L (136-145); eGFR NON AFRICAN AMERICAN > 90 mL/min (90-120)
[2016-05-02 06:24] LABS: CALC OSMOLALITY 278 mosm/kg (275-300); UREA NITROGEN 11 mg/dL (7-18)
--- NOTE | 2016-05-02 06:35 | NUR ---
PT AMBULATED IN HALLWAY THE LENGTH OF FISHER FROM END DOOR TO END DOOR. GAIT STEADY STATED HE DID NOT TIRE AND RESP REMAINED REG AND NONLABORED.
--- NOTE | 2016-05-02 06:44 | NUR ---
LAB RESULTS RECEIVED AND REVIEWED
--- NOTE | 2016-05-02 07:00 | NUR ---
REPORT RECEIVED. PATIENT ASSISTED TO THE BATHROOM, 100CC OF YELLOW URINE PUT OUT. SAT UP IN CHAIR FOR BREAKFAST. ASSESSMENT COMPLETED.
--- NOTE | 2016-05-02 10:26 | NUR ---
CALL WAS PLACED TO PATIENTS AUNT, GO GOMES, AT [phone] TO LET HER KNOW THAT THE PATIENT HAS DISCHARGE ORDERS. SHE STATED THAT SHE WAS AT DR FERRIS OFFICE WITH HER DAD AND WOULD BE OVER HERE IN HOPEFULLY 30 MINUTES TO GET HIM. PATIENT WAS DISCHARGED BY URIAH PEARL AND SHE REMOVED IV.
--- NOTE | 2016-05-02 11:01 | NUR ---
PATIENT DRESSED, STANDING AT WINDOW IN ROOM USING INCENTIVE SPIROMETER. NO NEEDS VOICED.
--- NOTE | 2016-05-02 11:39 | NUR ---
PATIENT EATING LUNCH. AUNT CALLED AND SAID THAT HER DAD'S DOCTOR'S APPOINTMENT RAN A LITTLE LONGER THAN PLANNED BUT SHE WOULD BE HERE SHORTLY TO PICK HIM UP. PATIENT DENIES NEEDS.
--- NOTE | 2016-05-02 12:07 | NUR ---
PATIENTS RIDE HERE, TAKING HIM OUT VIA WHEELCHAIR.
--- NOTE | 2016-05-05 13:38 | OP ---
PATIENT NAME: AGUSTIN GOMES MEDICAL RECORD: [id number] :74 LOCATION:D[facility] ADMISSION DATE: SURGEON: MATEO JOHNSON MD DATE OF OPERATION: 05/01/2016 SURGEON: Mateo Johnson MD ANESTHESIA: General, Dr. Kiser. OPERATION PERFORMED: 1. Bilateral retrograde sheath placements. 2. Left common femoral artery, 4-Estonian, 5-Estonian, 6-Estonian long exchanged for a 7-Estonian short. 3. Right common femoral artery, 4-Estonian, 6-Estonian. 4. Left external iliac arteriogram retrogradely. 5. Cross subtotal occlusion of the left common iliac artery. 6. Aortogram with bilateral iliac arteriograms. 7. Selective right external iliac arteriogram. 8. Stent 8 x 37 right external iliac artery balloon expandable stent. 9. Right external iliac arteriogram retrogradely. 10. Angioplasty of the right common iliac artery and stent placement, left common iliac artery, 8 x 57. 11. Stent of the left external iliac artery, 7 x 57. PREOPERATIVE DIAGNOSIS: Severe bilateral aortoiliac stenosis. POSTOPERATIVE DIAGNOSIS: Severe stenosis of the right external iliac artery and subtotal occlusion of the left common iliac artery and severe stenosis of the left external iliac artery. INDICATION FOR OPERATION: Severe claudication of the lower extremities and occasional rest pain. FINDINGS OF THE OPERATION: 1. Severe left external iliac artery stenosis and subtotal occlusion of the left common iliac artery that was crossing subtotal occlusion, a 6 sheath injection into the distal aorta demonstrates bilateral aortoiliac artery disease, subtotal occlusion on the left and high-grade stenosis of the distal right external iliac artery. 2. Status post stent placement, right external iliac artery demonstrates good flow through the stenotic area and stent into the common femoral artery. 3. Right retrograde external iliac artery demonstrates diffuse disease with aortoiliac disease. 4. Angioplasty of the right common iliac artery and stent placement in the left common iliac artery with an 8 x 57, demonstrates good flow through the stent on the left, good flow into the right common iliac artery and severe stenosis of the left external iliac artery. 5. Status post stent placement, left external iliac artery demonstrates good flow through the stenotic area and distally. 6. The ultrasound of the femoral area post-angioplasty and stenting demonstrates good flow into both common femoral arteries and into the profunda and superficial femoral arteries bilaterally. CONTRAST: 190 mL. OPERATIVE REPORT [id number] MIREYAAGUSTIN Olivera FLUORO TIME: 10 minutes 29 seconds. ESTIMATED BLOOD LOSS: Less than 5 cc. DESCRIPTION OF PROCEDURE: After informed consent, adequate preoperative medication evaluation, the patient was brought to the operating room, placed on the table in the supine position. After induction of general endotracheal anesthesia and application of appropriate monitoring devices, the abdomen and both groins were prepped and draped in a sterile field, utilizing Betadine scrub, alcohol, and Betadine solution, a Betadine-impregnated drape was also used, a micropuncture technique was made of the left common femoral artery and a 5-Estonian sheath placed. A retrograde arteriogram demonstrated the subtotal occlusion of the left common iliac artery and severe stenosis of the left external iliac artery. Utilizing a Regalia wire, the subtotal occlusion was crossed and exchange made for an Amplatz wire. A rim catheter was then placed with a Glidewire and the right common iliac artery was accessed and the rim catheter advanced to the superficial femoral artery and exchange was made for an Amplatz wire. A 6-Estonian long sheath was placed and a selective right external iliac arteriogram was performed, demonstrated severe greater than 90% stenosis of the distal right external iliac artery. Exchange was made for an Amplatz wire. An 8 x 37 balloon expandable stent was then placed in the right external iliac artery and inflated and arteriogram revealed no residual stenosis. The sheath was then moved back into the aorta and a Glidewire placed on the right. An aortogram demonstrated the anatomy and subtotal occlusion of the left common femoral artery. A retrograde, 4-Estonian sheath was then placed in the right common femoral artery retrogradely and arteriogram demonstrated no residual stenosis. A sheath was placed into the common iliac artery and an 8-Estonian balloon placed at the bifurcation. On the left, exchange was made for a short 7-Estonian Brite Tip sheath and arteriogram demonstrated the anatomy retrogradely from the left and 8 x 57 [employer] stent was then used on the left. The balloon expandable stent and right angioplasty balloon were inflated simultaneously and deflated. An aortogram demonstrated good flow through the stented area and into the right common iliac artery with severe stenosis of the left distal iliac artery. The 7-Estonian sheath was then withdrawn and a retrograde external iliac arteriogram performed and measurements made and a 7 x 57 balloon expandable stent was placed from the left hypogastric across the distal stenotic area on the left and aortogram demonstrated good flow into both iliac arteries and into the common femoral arteries. The patient was given a calculated dose of protamine to reverse the heparin and an 8-Estonian Angio-Seal was used on the left and a 6-Estonian Angio-Seal on the right. The patient then underwent ultrasound of his groin bilaterally with good flow through the common femoral arteries bilaterally into the superficial femoral artery and profunda femoral artery bilaterally. The patient tolerated the procedure well. Sterile dressings were applied. Instrument count and sponge count were correct times 2. The patient was then conveyed to the cardiovascular recovery in stable condition. TRANSINT:[id number] Voice Confirmation ID: [id number] DOCUMENT ID: [id number] OPERATIVE REPORT [id number] AGUSTIN GOMES EDWARD MD at 1338 CC: [id number] DICTATION DATE: 05/01/16 1253 DRAWING BOX TENDER: 05/02/16 0043 [facility] 05/02/16 [id number] [place] [address]
== END 2016-05-02 12:19 | disposition home or self-care (01) ==
LOC: D.OPS 06:10 → D.CVICU 12:18 → D.OPS 05-02 12:19
PROVIDERS: Internal Medicine Cardiovascular Disease
DX: I70.223 Atherosclerosis of native arteries of extremities with rest pain, bilateral legs (principal); F17.210 Nicotine dependence, cigarettes, uncomplicated; I65.23 Occlusion and stenosis of bilateral carotid arteries; I10 Essential (primary) hypertension; E78.00 Pure hypercholesterolemia, unspecified; R19.7 Diarrhea, unspecified

== ENCOUNTER 2016-06-08 11:15 | Inpatient (IN) | payer MEDICAID ==
--- NOTE | 2016-06-07 16:59 | HP ---
PATIENT: AGUSTIN GOMES MEDICAL RECORD: [id number] ACCOUNT: [id number] LOCATION:[facility] : 74 ADMISSION DATE: 06/08/16 HISTORY AND PHYSICAL EXAMINATION AGUSTIN Dorado (46yo, M) ID# [id number]. Date/Time05/31/2016 10:[id number] [address] Dept[facility] ClinicProviderEDJARRED JOHNSON MDInsuranceMed Primary: [place] Insurance # : [id number] Employer Name : UNKNOWN Prescription: CMX - Member is eligible. Prescription: [facility] MEDICA[facility] - Member is eligible. Chief Complaint PVD - peripheral vascular disease s/p LCEA 03/23/16 s/p Left arteriogram with intervention 05/01/16 Patient's Care Team Primary Care Provider: MARQUIS SUAREZ MD: [address] [place] [id number], Vitals BP:112/60 sitting R arm 05/31/2016 10:03 amHR:60R/R 05/31/2016 10:03 amHt:5 ft 7 in 05/31/2016 09:59 amWt:115 lbs 05/31/2016 10:02 amBMI:18 05/31/2016 10:02 amAllergies Reviewed Allergies NKDAMedications Reviewed Medications amLODIPine 5 mg tusvrh59/27/16 filledCaremarkaspirin 81 mg tablet,delayed release TK 1 T PO D003/29/16 filledsurescriptscarvedilol 12.5 mg ywgbji29/16/17 filledCaremarkcloNIDine HCl 0.1 mg tkifni07/17/17 filledCaremarkclopidogrel 75 mg tablet TK 1 T PO D005/22/16 filledCaremarklisinopril 10 mg-hydrochlorothiazide 12.5 mg ezwpgm87/05/17 filledCaremarkLongs Adult Low Strength ASA 81 mg tablet,delayed release Take 2 tablet(s) every day by oral route.03/20/16 Neida Huang Some medications listed in Documents: #[id number], #[id number] could not be added to this patient's chart. Please review these documents and add these medications to the patient's chart manually as needed. Vaccines Reviewed Vaccines Some vaccines listed in Documents: #[id number], #[id number] could not be added to this patient's chart. Please review these documents and add these vaccines to the patient's chart manually as needed. Problems Reviewed Problems Atherosclerosis of arteries of the extremities - Onset: 05/01/2016, Left Carotid artery stenosis - Onset: 03/19/2016, Bilateral Family History Discussed Family History Father- Heart diseaseSocial History Discussed Social History Cardiology Family history of heart disease?: Y Smoking Status: Current every day smoker HISTORY AND PHYSICAL [id number] AGUSTIN GOMES Smoker (03/14 PPD) High Cholesterol: Y High blood pressure: Y Alcohol intake: None Diet: Regular Tobacco-years of use: 20 Surgical History Reviewed Surgical History Other - 05/01/2016 - Left arteriogram with intervention Carotid Endarterectomy - 03/23/2016 - Left 04/27/16 no PA required for 05/01/16 sx per Brent @ [facility]. Ref #: [id number] *SJ 03/21/16 no PA required for 03/23/16 sx per Toya @ [facility]. Ref #: [id number] *SJ back surgery as , no complications Past Medical History Discussed Past Medical History Blurred Vision: Y Carotid Stenosis: Y Drug Abuse: Y Hypertension: Y Documents for Discussion N/A Screening None recorded. HPI Post-Op Visit Reported by patient. Associated Symptoms: incision healing well; no fatigue; normal appetite; normal bowel function; no constipation; no nausea; no emesis; pain improving; no pain; no fever; no bleeding; no lower extremity edema/pain; no dysuria/urinary symptoms carotid artery disease Peripheral arterial disease ROS Patient reports no fever, no night sweats, no significant weight gain, no significant weight loss, and no exercise intolerance. He reports no dry eyes, no irritation, and no vision change. He reports no difficulty hearing an d no ear pain. He reports no frequent nosebleeds and no nose/sinus problems. He reports no sore throat, no bleeding gums, no snoring, no dry mouth, no mouth ulcers, no oral abnormalities, and no teeth problems. He reports no jugular vein distension and no swollen glands. He reports no chest pain, no arm pain on exertion, no shortness of breath when walking, no shortness of breath when lying down, no palpitations, and no known heart murmur. He reports no cough, no wheezing, no shortness of breath, and no co u ghing up blood. He reports no abdominal pain, no vomiting, normal appetite, no diarrhea, not vomiting blood, no nausea, and no constipation. He reports no incontinence, no difficulty urinating, no hematuria, and no increased frequency. He reports no muscl e aches, no muscle weakness, no arthralgias/joint pain, no back pain, and no swelling in the extremities. He reports no abnormal mole, no jaundice, and no rashes. He reports no loss of consciousness, no weakness, no numbness, no seizures, no dizziness, and no headaches. He reports no depression, no sleep disturbances, feeling safe in relationship, and no alcohol abuse. He reports no fatigue. He reports no swollen glands and no bruising. He reports no runny nose, no sinus pressure, no itching, no hives, and no frequent sneezing. Additionally reports: here for carotid stenosis ROS as noted in the HPI HISTORY AND PHYSICAL [id number] AGUSTIN GOMES Physical Exam Patient is a 46-year-old male. Constitutional: General Appearance well nourished and developed and healthy-appearing. Level of Distress NAD. Ambulation ambulating normally. Cardiovascular: Apical Impulse not displaced or no thrill. Heart Auscultation normal s1 and s2; no murmurs, rubs, or gallops; and RRR. Arterial Pulses no abdominal aorta bruits, femoral bruits, or popliteal bruits and 2+ bilatera l, carotid 2+ bilateral, femoral 2+ bilateral, popliteal 2+ bilateral, and dorsalis pedis 2+ bilateral. Edema no edema or varicosities. Lungs: Repiratory Effort no dyspnea. Percussion no hyperresonance or dullness or flatness. Auscultation no wheezing, rh onchi, or rales / crackles and breathing sounds normal, good air movement, and CTA except as noted. Abdomen: Bowl Sounds normal. Inspection and Palpation no tenderness, guarding, masses, or rebound tenderness and soft and non-distended. Liver non-tender and no hepatomegaly. Spleen non-tender and no splenomegaly. Hernia none palpable. Musculoskeletal System: Gait And Stance normal gait and stance. Digits and Nails normal nails and no cyanosis. Neurologic: Cranial Nerves grossly intact. Reflexes DTRs 2+ bilaterally throughout. Sensation grossly intact. Lymph Nodes: Lymph Nodes no cervical LAD, supraclavicular LAD, axillary LAD, or inguinal LAD. Eyes: Lids and Conjunctivae no discharge or pallor and non-injected. Pupils PERRLA. Cornea grossly intact. EOM EOMI. Lens clear. Sclerae non-icteric. Neck: Neck no masses or enlarged lymph nodes and supple, trachea midline, and carotid bruits (right lower High-pitched left). Thyroid no enlargement or nodules and non-tender. Skin: Inspection and Palpation no rash, lesions, ulcers, jaundice, or abnormal nevi. Assessment / Plan status post left carotid endarterectomy healing well Severe stenosis of the right internal carotid artery as well as the common carotid artery Peripheral arterial disease status post stenting no claudication 1. Carotid artery stenosis - Bilateral I65.29: Occlusion and stenosis of unspecified carotid artery CAROTID STENOSIS: CARE INSTRUCTIONS 2. Atherosclerosis of arteries of the extremities - Left I70.209: Unspecified atherosclerosis of [place] arteries of extremities, unspecified extremity Discussion Notes I have discussed right carotid endarterectomy with him as well as the alternative methods of treatment.we discussed right carotid endarterectomy and the expecte d benefits and risk which included bleeding, infection, stroke, and . He HISTORY AND PHYSICAL [id number] AGUSTIN GOMES understands all of the above and wishes to proceed with right carotid endarterectomy. He will most likely be a candidate for right common carotid stenting at a later date. Return to Office None recorded. MATEO JOHNSON MD at 1659 CC: [id number] DICTATION DATE: 05/31/16 [address] [place] HISTORY PROFESSOR: MORIAH 06/04/16 1457 PRE IN [facility] [address] [place] [address]
[2016-06-08] VITALS (41 sets, daily range): BP systolic 114–148; BP diastolic 56–83; Ht 170.2 cm; Wt 53.4 kg
[~2016-06-08] VITALS: Ht 170.2 cm; Wt 53.4 kg
[2016-06-08 07:31] LABS: HEMATOCRIT 42.6 % (42.0-54.0); HEMOGLOBIN 14.5 g/dL (13.5-17.5); MCH 29.7 pg (26.0-34.0); MCV 87.3 fL (80.0-100.0); MEAN PLATELET VOLUME 8.7 fL (7.4-10.4); RBC 4.88 10x6/uL (4.20-6.10); RDW 12.6 % (11.5-14.5); WBC 11.9 10x3/uL (4.8-10.8)
[2016-06-08 07:43] LABS: APTT 28.9 SECONDS (22.8-39.4); INR 0.97 (0.85-1.17); PROTIME 12.8 SECONDS (11.6-15.0)
[2016-06-08 08:00] LABS: ALBUMIN 3.7 g/dL (3.4-5.0); ALKALINE PHOSPHATASE 118 U/L (46-116); ALT (SGPT) 27 U/L (10-68); BILIRUBIN - TOTAL 0.21 mg/dL (0.2-1.3); CALC OSMOLALITY 278 mosm/kg (275-300); CALCIUM 9.2 mg/dL (8.5-10.1); CARBON DIOXIDE 27.5 mmol/L (21.0-32.0); CHLORIDE - SERUM 104 mmol/L (98-107); CREATININE - SERUM 0.9 mg/dL (0.6-1.3); GLUCOSE 95 mg/dL (74-106); POTASSIUM - SERUM 4.3 mmol/L (3.5-5.1); PROTEIN - SERUM 7.2 g/dL (6.4-8.2); SODIUM 139 mmol/L (136-145); UREA NITROGEN 15 mg/dL (7-18); eGFR NON AFRICAN AMERICAN > 90 mL/min (90-120)
[2016-06-08 10:25] LABS: APPEARANCE CLEAR (CLEAR); BILIRUBIN NEGATIVE (NEGATIVE); COLOR YELLOW (YELLOW); GLUCOSE NEGATIVE (NEGATIVE); KETONE NEGATIVE (NEGATIVE); LEUKOCYTE ESTERASE NEGATIVE (NEGATIVE); NITRITE NEGATIVE (NEGATIVE); PROTEIN NEGATIVE (NEGATIVE); SPECIFIC GRAVITY 1.015 (1.005-1.020); UROBILINOGEN NORMAL (NORMAL)
[2016-06-08 10:26] LABS: BACTERIA NONE SEEN /hpf (NONE SEEN); EPITHELIAL CELLS NSEEN /hpf (0-5); RED CELLS - URINE 0-5 /hpf (0-5); WHITE CELLS - URINE NSEEN /hpf (0-5)
--- NOTE | 2016-06-08 14:40 | NUR ---
PT ARRIVED TO ROOM VIA BED AT 14:22. PT ALERT AND CONVERSANT. ANSWERS APPROPRIATELY. HOOKED UP TO VITAL MONITORING. XRAY IN ROOM AT THIS TIME.
--- NOTE | 2016-06-08 15:07 | NUR ---
PT DOING INCENTIVE SPIROMETRY. CONSISTENTLY HITTING 2500. ABLE TO GET TO 3250.
--- NOTE | 2016-06-08 15:20 | NUR ---
SPOKE WITH COLLIN AT DR SUAREZ OFFICE ABOUT CONSULT. SAYS WILL GIVE TO DR VALLADARES, DR SUAREZ IS OUT FOR THE DAY.
--- NOTE | 2016-06-08 16:49 | NUR ---
CALLED [facility] AND SPOKE WITH COLLIN AGAIN TO LET HER KNOW THAT THE PATIENT SAYS DR ISLAS IS PCP. SHE SAID SHE GAVE THE CONSULT TO DR VALLADARES BECAUSE HE IS THE PHYSICIAN ON-CALL FOR THE WEEKEND.
--- NOTE | 2016-06-08 18:00 | NUR ---
COUSIN GO IN TO SEE PATIENT FOR 6PM VISITATION. PT SLEEPING. SHE DOESN'T WANT TO WAKE, WILL COME BACK AT 9PM VISITATION. LET HER KNOW I HAD JUST WOKE HIM TO GIVE HIM A MEDICATION, BUT SHE WANTED TO LET HIM REST.
--- NOTE | 2016-06-08 18:15 | NUR ---
PT BP HANGING BORDERLINE 140'S. COREG GIVEN AND THEN CLONIDINE TO TRY TO AVOID CHANGING IV PRESSOR. WILL CONTINUE TO MONITOR AND IF DOESN'T COME DOWN WILL CHANGE TO NIPRIDE
--- NOTE | 2016-06-08 18:30 | NUR ---
DR VALLADARES IN TO SEE PATIENT.
--- NOTE | 2016-06-08 18:44 | NUR ---
PT SYSTOLIC REMAINED 140'S. CHANGED CLEVIPREX TO NIPRIDE.
--- NOTE | 2016-06-08 19:30 | NUR ---
REPORT RECVD. CARE ASSUMED. INITIAL ASSMNT COMPLETED. SEE FLOWSHEET FOR ALL FINDINGS. RESTING IN BED. NO DISTRESS. REP UNLABORED. LUNGS CTA. SPO2 94% ON RA. SR ON THE MONITOR. PULSES [PALP. RIGHT RADIAL A-LINE ZEROED AND BALANCED. GOOD WAVE FORM SEEN. NIPRIDE GTT TITRATION IN PROGRESS FOR SYS B/P PARAMETERS. TEDS/SCDS ON. ABD SOFT, BSA X4. F/C PATENT WITH VIANCA UOP. DENIES PAIN AT THIS TIME. HOB UP. C/L IN REACH. CONT CURRENT POC.
--- NOTE | 2016-06-08 23:30 | NUR ---
REASSESSMENT COMPLETED. SEE FLOWSHEET FOR ALL FINDINGS. RESTING. NO NEURO DEFICITS SEEN. RESP EVEN AND UNLABORED, LUNGS CTA. SPO2 95% ON O2 AT 3LPM NC. SR ON THE MONITOR. RIGHT RADIAL A LINE INTACT WITH GOOD WAVE FORM SEEN. CLEVIPREX GTT TITRATION IN PROGRESS FOR SYS B/P PARAMETERS. PULSES PALP. TEDS/SCDS ON. AFEBRILE. ABD SOFT, BSA X4. F/C PATENT WITH VIANCA UOP TO CRITICORE. RIGHT NE INCISION CDI. ICE APPLIED DIRECTED. DENIES DISCOMFORT. REESE DRAIN INTACT AN COMPRESSED WITH MINIMAL BLOODY DRNG. HOB UP. C/L IN REACH. BED ALARM ON. CON CURRENT POC.
[2016-06-09] VITALS (63 sets, daily range): BP systolic 94–163; BP diastolic 48–89
--- NOTE | 2016-06-09 01:30 | NUR ---
RESTING IN BED WITH NO DISTRESS. REMAINS ON NIPRIDE GTT TITRATION FOR SYS B/P PARAMETERS. SR ON THE MONITOR. HOB UP. C/L IN REACH. CONT CURRENT POC.
--- NOTE | 2016-06-09 03:30 | NUR ---
REASSESSMENT COMPLETED. SEE FLOWSHEET FOR ALL FINDINGS. RESTING. NO NEURO DEFICITS SEEN. RESP EVEN AND UNLABORED, LUNGS CTA. SPO2 95% ON RA. SR ON THE MONITOR. RIGHT RADIAL A LINE INTACT WITH GOOD WAVE FORM SEEN. NIPRIDE GTT TITRATION IN PROGRESS FOR SYS B/P PARAMETERS. PULSES PALP. TEDS/SCDS ON. AFEBRILE. ABD SOFT, BSA X4. F/C PATENT WITH VIANCA UOP TO CRITICORE. RIGHT NE INCISION CDI. ICE APPLIED DIRECTED. DENIES DISCOMFORT. REESE DRAIN INTACT AN COMPRESSED WITH MINIMAL BLOODY DRNG. HOB UP. C/L IN REACH. BED ALARM ON. CONT CURRENT POC.
--- NOTE | 2016-06-09 05:30 | NUR ---
RESTLESS IN BED. ASSISTED TO POSITION OF COMFORT. REMAINS ON NIPRIDE GTT TITRATION. DENIES DISCOMFORT. HOB UP. C/L IN REACH. CONT POC.
--- NOTE | 2016-06-09 06:20 | NUR ---
ALEC AT BEDSIDE FOR REESE REMOVAL. FLATBED PRESS OPERATOR USED.
--- NOTE | 2016-06-09 08:38 | NUR ---
PRN CLONIDINE GIVE PER ORDER. WATER PROVIDED NO OTHER REQUESTS AT THIS TIME.
--- NOTE | 2016-06-09 10:11 | NUR ---
ATTEMPTED TO CALL DR. JOHNSON CONCERNING ELEVATED BP. NO ANSWER. MESSAGE LEFT FOR RETURN CALL.
--- NOTE | 2016-06-09 11:11 | NUR ---
A-LINE DC'D PER ORDER. MANUAL PRESSURE APPLIED TIMES 5 MINUTES. CLEAR DRESSING APPLIED. PT INSTRUCTED TO NOTIFY FOR ANY S/SX OF BLEEDING OR SWELLING TO SITE.
--- NOTE | 2016-06-09 11:37 | OP ---
PATIENT NAME: AGUSTIN GOMES MEDICAL RECORD: [id number] :74 LOCATION:[facility] ADMISSION DATE:06/08/16 SURGEON: ISHAAN JOHNSON MD DATE OF OPERATION: 06/08/2016 SURGEON: Ishaan Johnson MD. ANESTHESIA: General endotracheal, Dr. Kiser. OPERATION PERFORMED: Right carotid endarterectomy with patch angioplasty. PREOPERATIVE DIAGNOSIS: Severe right internal carotid artery stenosis. POSTOPERATIVE DIAGNOSIS: Severe right internal carotid artery stenosis. INDICATION FOR OPERATION: Severe right internal carotid artery stenosis. FINDINGS AT OPERATION: Severe right internal carotid artery stenosis. There were no EEG changes with clamping or unclamping of the carotid artery. ESTIMATED BLOOD LOSS: Less than 100 mL. DESCRIPTION OF PROCEDURE: After informed consent, adequate preoperative medication evaluation, the patient was brought to the operating room and placed on table in supine position. After induction of general endotracheal anesthesia and application of appropriate monitoring devices, the right neck and chest were prepped and draped in a sterile field, utilizing Betadine scrub, alcohol and Betadine solution. A Betadine-impregnated drape was also used. An oblique incision was made in the skin crease. Dissection was carried down the fascia. Hemostasis maintained with electrocautery. Facial vein was identified and divided. Utilizing sharp dissection, the common carotid, internal and external carotid arteries were dissected free from surrounding structures, protecting the neurological structures. The patient was given a calculated dose of heparin and after 3 minutes, clamps were applied. After 2 minutes, no EEG change. The arteriotomy was made and extended with Sinclair scissors. Artery underwent endarterectomy sharply. Artery underwent extensive debridement and irrigation. Utilizing a CorMatrix vascular patch and running 7-0 Prolene suture, the arteriotomy was closed with patch angioplasty technique. All maneuvers to remove trapped air were performed. The clamps were removed sequentially. There were no EEG changes. The patient was given a calculated dose of protamine to reverse the heparin. Hemostasis was achieved and a #7 Honorio-Juárez drain was left in the depths of the wound and brought through the base of the neck. Neck was again irrigated. Instrument count and sponge count were correct times 2. Neck was closed in layers utilizing 3-0 Vicryl on the platysma and 5-0 subcuticular Monocryl on the skin. Sterile dressings were applied. The patient tolerated the procedure well and transferred to the ICU in satisfactory condition. TRANSINT:[id number] Voice Confirmation ID: [id number] DOCUMENT ID: [id number] OPERATIVE REPORT [id number] AGUSTIN GOMES EDWARD MD at 1137 CC: [id number] DICTATION DATE: 06/08/16 1416 FURNITURE AND BEDDING INSPECTOR: 06/08/16 1618 ADM IN [facility] [id number] [place] [address]
--- NOTE | 2016-06-09 19:30 | NUR ---
REPORT RECVD. CARE ASSUMED. INITIAL ASSMNT COMPLETED. SEE FLOWSHEET FOR ALL FINDINGS. RESTING IN BED. NO DISTRESS. REP UNLABORED. LUNGS CTA. SPO2 94% ON RA. SR ON THE MONITOR. PULSES PALP. NIPRIDE GTT TITRATION IN PROGRESS FOR SYS B/P PARAMETERS. TEDS/SCDS ON. ABD SOFT, BSA X4. DENIES PAIN AT THIS TIME. HOB UP. C/L IN REACH. CONT CURRENT POC.
--- NOTE | 2016-06-09 21:10 | NUR ---
SPOKE WITH FAMILY VIA PHONE WITH PT PERMISSION. UPDATE GIVEN. PT RESTING, DENIES NEEDS. VSS. NIPRIDE TITRATION IN PROGRESS. HOB UP. C/L IN REACH. CONT CURRENT POC.
--- NOTE | 2016-06-09 23:30 | NUR ---
REASSESSMENT COMPLETED. SEE FLOWSHEET FOR ALL FINDINGS. RESTING.PERRLA. NO NEURO DEFICITS SEEN. RESP EVEN AND UNLABORED, LUNGS CTA. SPO2 94% ON RA. SR ON THE MONITOR. TITRATING NIPRIDE GTT FOR B/P PARAMETERS. PULSES PALP. TEDS/SCDS ON. AFEBRILE. ABD SOFT, BSA X4. VOIDING TO URINAL NO DIFF. RIGHT NECK INCISION CDI. DENIES DISCOMFORT. INDEPENDENT WITH REPOSITIONING. HOB UP. C/L IN REACH. BED ALARM ON. CONT CURRENT POC.
[2016-06-10] VITALS (14 sets, daily range): BP systolic 100–178; BP diastolic 50–91
--- NOTE | 2016-06-10 01:25 | NUR ---
RESTING IN BED. NO DISTRESS. VSS. DENIES NEEDS. HOB UP. C/L IN REACH. CONT CURRENT POC.
--- NOTE | 2016-06-10 03:30 | NUR ---
REASSESSMENT COMPLETED. SEE FLOWSHEET FOR ALL FINDINGS. AWAKE AND AOX4. PERRLA. NO NEURO DEFICITS SEEN. RESP EVEN AND UNLABORED, LUNGS CTA. SPO2 95% ON O2 AT 2LPM NC. SR ON THE MONITOR. PULSES PALP. TEDS/SCDS ON. AFEBRILE. ABD SOFT, BSA X4. VOIDING TO URINAL NO DIFF. RIGHT NECK INCISION CDI. DENIES DISCOMFORT. INDEPENDENT WITH REPOSITIONING. HOB UP. C/L IN REACH. BED ALARM ON. CONT CURRENT POC.
--- NOTE | 2016-06-10 05:00 | NUR ---
PRN CLONIDINE EFFECTIVE WITH MAINTAINING B/P WITHIN PARAMETERS. RESTING IN BED. DENIES NEEDS. HOB UP. C/L IN REACH. CONT CURRENT POC.
[2016-06-10] MEDS ORDERED: COREG12.5 MG PO (12:33)
--- NOTE | 2016-06-10 13:18 | NUR ---
CVL DC'D PER ORDER WITH CATH FULLY INTACT. MANUAL PRESSURE APPLIED TIMES 5 MINUTES. CLEAR DRESSING APPLIED. PT INSTRUCTED TO LAY FLAT FOR 10 MINUTES. DC INSTRUCTIONS REVIEWED WITH PT AND FAMILY. NO FURTHER QUESTIONS.
--- NOTE | 2016-06-10 13:43 | NUR ---
PT DC'D HOME WITH FAMILY.
== END 2016-06-10 14:01 | disposition home or self-care (01) | DRG 39 ==
LOC: D.SDCHOLD 11:15 → D.CVICU 13:37
PROVIDERS: ADMIT Internal Medicine Cardiovascular Disease
PROC: 03UK0JZ Supplement Right Internal Carotid Artery with Synthetic Substitute, Open Approach (ICD-10-PCS; 2016-06-08)
PROC: 03CK0ZZ Extirpation of Matter from Right Internal Carotid Artery, Open Approach (ICD-10-PCS; principal; 2016-06-08 11:15)
DX: I65.21 Occlusion and stenosis of right carotid artery (principal); E78.00 Pure hypercholesterolemia, unspecified; I10 Essential (primary) hypertension; I70.212 Atherosclerosis of native arteries of extremities with intermittent claudication, left leg; I95.81 Postprocedural hypotension

== ENCOUNTER → 2017-06-07 12:26 | Outpatient (CLI) | payer MEDICAID ==
[2016-06-08 16:15] VITALS: BMI 18.0
== END | disposition home or self-care (01) ==
LOC: D.US 12:26
DX: I65.23 Occlusion and stenosis of bilateral carotid arteries (principal); I73.9 Peripheral vascular disease, unspecified

== ENCOUNTER → 2019-12-24 09:17 | Outpatient (CLI) | payer MEDICAID ==
[2016-06-08 16:15] VITALS: BMI 18.0
== END | disposition home or self-care (01) ==
LOC: D.CT 09:17
PROVIDERS: ATTEND Nurse Practitioner Family
DX: I65.22 Occlusion and stenosis of left carotid artery (principal)

== ENCOUNTER → 2020-07-28 14:08 | Outpatient (CLI) | payer BC ==
[2020-01-18 11:02] VITALS: BMI 18.1
[~2020-07-28 14:08] MED LIST changes: +LOSARTAN-HCTZ1 EAC1 PO; +PRAVACHOL20 MG PO
== END | disposition home or self-care (01) ==
LOC: D.US 07-27 14:30
PROVIDERS: ATTEND Radiology Diagnostic Radiology
DX: I65.22 Occlusion and stenosis of left carotid artery (principal)